=== PATIENT | female | born 1995 | race Caucasian/White ===

== ENCOUNTER 2016-11-05 13:44 | Emergency (ER) | payer OTHER ==
[~2016-11-05] VITALS: Ht 170.2 cm; Wt 144.5 kg
[2016-11-05 14:16] LABS: POINT-OF-CARE METER ID UU13113778
[2016-11-05 14:37] LABS: ADD MIUA? YES; BILIRUBIN NEGATIVE; BLOOD NEGATIVE; COLOR YELLOW ((YELLOW)); GLUCOSE (STRIP) NEGATIVE; KETONES 5; LEUKOCYTES TRACE; NITRITE NEGATIVE; PROTEIN (STRIP) 30; SPECIFIC GRAVITY 1.023 (1.000-1.030); UROBILINOGEN 0.2 MG/DL (0.2-1.0)
[2016-11-05 14:42] LABS: BACTERIA 1+ /HPF; EPITHELIAL CELLS 1+ /HPF; MUCUS 1+ /LPF; RED BLOOD CELLS 0-5 /HPF (0-5); UCUL ADDED? NO
[2016-11-05 14:53] LABS: HEMATOCRIT 37.8 % (36.0-46.0); MCH 23.4 PG (29.0-34.0); MCHC 31.5 G/DL (30.0-36.0); MCV 74.4 FL (83-99); MEAN PLAT.VOLUME 9.6 uM^3 (9.5-12.4); PLATELET COUNT 512 K/uL (156-360); RBC DIS.WIDTH-CV 15.5 % (11.8-14.6); RBC DIS.WIDTH-SD 41.4 % (39-53); RED BLOOD COUNT 5.08 M/uL (3.80-5.20); WHITE BLOOD COUNT 15.5 K/uL (4.1-10.2)
[2016-11-05 14:55] LABS: CHLORIDE 104 mEq/L (99-109); POTASSIUM 4.1 mEq/L (3.7-5.4); SODIUM 138 mEq/L (136-147)
[2016-11-05 14:57] LABS: GLUCOSE 74 mg/dL (70-99)
[2016-11-05 14:58] LABS: ANION GAP 8 MEQ/L (2-14)
[2016-11-05 15:01] LABS: GFR ESTIMATE (CALCULATED) > 59 mL/min/
[2016-11-05 15:02] LABS: UREA NITROGEN (BUN) 13 mg/dL (9-23)
[2016-11-05 15:09] LABS: QUANTITATIVE HCG < 4.0 MIU/ML
[2016-11-05] MEDS ORDERED: KEFLEX500 MG PO (16:04)
[2016-11-05] MEDS ORDERED: ZOFRAN ODT4 MG PO (16:04)
[2016-11-05 16:23] LABS: POINT-OF-CARE METER ID UU13113800
[2016-11-05 16:58] VITALS: BP 139/102
== END 2016-11-05 17:01 | disposition home or self-care (01) ==
LOC: EME 13:44
PROVIDERS: Nurse Practitioner Family
DX: R55 Syncope and collapse (principal); N39.0 Urinary tract infection, site not specified; Z87.891 Personal history of nicotine dependence
CPT/HCPCS: 71020; 80048; 81003; 82948; 84702; 85027; 93005; 99281; 99284